=== PATIENT | female | born 1955 | race Caucasian/White ===

== ENCOUNTER 2023-05-05 10:25 | Emergency (ER) | payer MEDICARE, BC ==
[~2023-05-05] VITALS: Ht 165.1 cm; Wt 128.0 kg
[~2023-05-05 10:25] MED LIST: AMLODIPINE BESYL5 MG PO; AMOX TR-K CLV1 EAC1 PO; BACTRIM DS TAB1 EACH PO; BAYER CHEWABLE81 MG PO; BISOPROLOL FUMAR5 MG PO; BLOOD GLUCOSE1 EAC1 MISC; BLOOD GLUCOSE1 EAC8 MISC; CELECOXIB200 MG PO; FUROSEMIDE20 MG PO; GABAPENTIN300 MG PO; HYDROCHLOROTH12.5 MG PO; ICAPS AREDS2 C1 EACH; IRON325 M1 PO; LANCETS1 EACH MISC; LOSARTAN POTASS50 MG PO; METFORMIN HCL500 MG PO; OXYCODONE HCL5 MG PO; POTASSIUM CHLO10 ME1 PO; POTASSIUM CHLO20 ME1 PO; PROBIOTIC1 EAC1 PO; SENNA LAX8.6 MG PO; XARELTO10 MG PO
--- OUTSIDE RECORDS SUMMARY | 2023-05-05 10:28 | XMS ---
PreManage Notification: BHAVANA LUCIO Security Tagman Events No recent Security Events currently on file CRITERIA MET - [facility] CARE PROVIDERS There are no care providers on record at this time. Farhat has no Care Guidelines for this patient. Kalyn VISIT COUNT (12 MO.) 2 ENEIDA Lowery TOTAL 2 NOTE: Visits indicate total known visits. ED/C VISIT TRACKING (12 MO.) 05/05/2023 10:26 ENEIDA Arriola OR TYPE: Emergency COMPLAINT: - ABNORMAL LABS 07/13/2022 21:00 ENEIDA Arriola OR TYPE: Emergency COMPLAINT: - WEAKNESS INPATIENT VISIT TRACKING (12 MO.) 07/13/2022 23:27 ENEIDA Arriola OR TYPE: Medical Surgical COMPLAINT: - SEPSIS, UTI, RIGHT LE CELLULITIS DIAGNOSES: - Cellulitis of right lower limb - Cellulitis of right lower limb - Contact with and (suspected) exposure to COVID-19 - Contact with and (suspected) exposure to COVID-19 - Essential (primary) hypertension - Essential (primary) hypertension - Hypertensive urgency - Hypertensive urgency - Hypomagnesemia - Hypomagnesemia - Other chronic pain - Other chronic pain - Other terminal carman (current) drug therapy - Other fci (current) drug therapy - Pain in right hip - Pain in right hip - Presence of other heart-valve replacement - Presence of other heart-valve replacement - Sepsis due to streptococcus, group A - Sepsis due to streptococcus, group A - Sepsis, unspecified organism - Severe sepsis without septic shock - Severe sepsis without septic shock - Supraventricular tachycardia - Supraventricular tachycardia - Type 2 diabetes mellitus without complications - Type 2 diabetes mellitus without complications - Urinary tract infection, site not specified - Urinary tract infection, site not specified [email or web address]
[2023-05-05 12:35] LABS: BASOPHILS 0.3 % (0-2); EOSINOPHILS 1.3 % (0-6); HEMATOCRIT 27.4 % (35.0-50.0); LYMPHOCYTES 16.2 % (24-44); MCH 31.7 (27-36); MCHC 32.9 g/dl (30-36); MCV 96.3 fl (81-99); MONOCYTES 5.8 % (0-12); NEUTROPHILS 76.4 % (39-80); PLATELET COUNT 218 K/uL (140-440); RBC 2.85 M/ul (4.3-5.7); RDW 14.3 (10.5-15.0)
[2023-05-05 12:50] LABS: ALBUMIN 3.2 g/dL (3.4-5.0); ALBUMIN/GLOBULIN RATIO 1.03 (1.1-2.4); ANION GAP 12.3 (7-21); BILIRUBIN, TOTAL 0.2 ng/dL (0.2-1.0); BUN/CREATININE RATIO 27.98 (6.0-28.6); CALCIUM 8.4 mg/dL (8.5-10.1); CREATININE, SERUM 3.68 mg/dL (0.55-1.02); POTASSIUM 5.3 mmol/L (3.5-5.1); PROTEIN, TOTAL 6.3 g/dL (6.4-8.2)
[2023-05-05 14:01] LABS: BILIRUBIN, URINE NEGATIVE (negative); BLOOD/HGB, URINE NEGATIVE (Negative); KETONE, URINE NEGATIVE (Negative); LEUK ESTERASE, URINE NEGATIVE (negative); NITRITE, URINE NEGATIVE (negative)
[2023-05-05 16:27] VITALS: BP 106/60
== END 2023-05-05 16:29 | disposition home or self-care (01) ==
LOC: ED 10:25
PROVIDERS: Emergency Medicine
DX: N13.9 Obstructive and reflux uropathy, unspecified (principal); I10 Essential (primary) hypertension; Z79.01 Long term (current) use of anticoagulants; Z79.899 Other long term (current) drug therapy; Z96.641 Presence of right artificial hip joint
CPT/HCPCS: 36415; 51702; 74176; 80053; 81003; 83735; 85025; 99284-25

== ENCOUNTER 2025-05-24 13:31 | Inpatient (IN) | payer MEDICARE, BC ==
[~2025-05-24] VITALS: Ht 165.1 cm; Wt 125.5 kg
--- NOTE | ~2025-05-24 | EKG ---
[facility] [address] [place], [place] [address] Draft EK completed, results pending confirmation PATIENT NAME: BHAVANA LUCIO Electrocardiogram DATE OF : 55 PHYSICIAN: PRELIMINARY REPORT #: [id number] REPORT IS CONFIDENTIAL AND NOT TO BE RELEASED WITHOUT AUTHORIZATION
[2025-05-24 14:19] LABS: BASOPHILS 0.5 % (0.1-1.2); EOSINOPHILS 2.4 % (0.7-5.8); LYMPHOCYTES 15.6 % (19.3-51.7); MCH 30.9 PG (25.6-32.2); MCHC 30.8 g/dL (32.2-35.5); MCV 100.2 fL (79.4-94.8); MONOCYTES 5.7 % (4.7-12.5); NEUTROPHILS 75.6 % (34.0-71.1); RBC 4.14 M/uL (3.93-5.22)
[2025-05-24 14:44] LABS: ALT (SGPT) 32.0 U/L (14-59); AST (SGOT) 21.0 U/L (15-37); GLOMERULAR FILTRATION RATE,EST 58.0 mL/min (>60); PROTEIN, TOTAL 7.6 g/dL (6.4-8.2); UREA NITROGEN 36.0 mg/dL (7-18)
[2025-05-24] MEDS ORDERED: FUROSEMIDE 100 MG/10 ML VIAL IV ONE (15:15)
[2025-05-24] MEDS ORDERED: GLUCAGON,HUMAN RECOMBINANT 1 MG/ML VIAL SUB-Q PRN (16:45)
[2025-05-24] MEDS ORDERED: IBLOOD GLUCOSE TEST STRIP 1 EA TEST XX PRN (16:45)
[2025-05-24] MEDS ORDERED: DEXTROSE 50% 50 ML SYR IV PRN ×2 (16:45)
[2025-05-24] MEDS ORDERED: ACETAMINOPHEN 325 MG TAB PO PRN (16:45)
[2025-05-24] MEDS ORDERED: DEXTROSE 5% 1,000 ML IV PRN (16:45)
[2025-05-24] MEDS ORDERED: INSULIN LISPRO 100 UNIT/ML ML SUB-Q SCH (17:00)
[2025-05-24] MEDS ORDERED: IBLOOD GLUCOSE TEST STRIP 1 EA TEST VI SCH (17:00)
[2025-05-24] MEDS ORDERED: ALBUTEROL SULFATE 0.083% 3 ML VIAL INH PRN (17:45)
--- NOTE | 2025-05-24 18:10 | NUR ---
PT DOES NOT TAKE ANY VACCINATIONS
[2025-05-24 18:13] VITALS: BP 134/70
--- NOTE | 2025-05-24 18:28 | NUR ---
ECHOCARDIOGRAM BEING COMPLETED AT BEDSIDE.
--- NOTE | 2025-05-24 19:26 | NUR ---
PT REC'D FROM ED, O2 NC @ 3.5LNC IN USE. PT INDEPENDENT TRANSFER FROM W/C TO BED. ADMISSION HX COMPLETED. IV SL TO R FA. PT A&OX 4, L/S DECREASED TO BASES, HRR, TELE# 6, SR 70'S, ABDOMEN SOFT, BILAT 3+EDEMA TO LE, HOME SUPPORT STOCKINGS IN PLACE. GLUCOSE 125, PT ORIENTED TO ROOM AND CALL CHATMAN, INSTRUCTED TO CALL FOR ASSISTANCE OOB TO BSC. CPOX PLACED AT BEDSIDE. BED IN LOW POSITION AND LOCKED, CALL CHATMAN IN PLACE AND SIDERAILS UP X2. REPORT GIVEN TO ONCOMING SHIFT.
--- NOTE | 2025-05-24 19:32 | NUR ---
REPORT RECIEVED FROM DIYA MCLEAN. PATIENT RESTING IN HER CHAIR WITH HER AT BEDSIDE. PATIENT DENIES ANY NEEDS AT THIS TIME. CALL LIGHT AND PERSONAL BELONGINGS ARE WITHIN REACH.
--- NOTE | 2025-05-24 19:54 | NUR ---
dr rodgers at bedside, per dr rodgers-no need to repeat trops. read back to confirm. primary rn updated and aware.
[2025-05-24] MEDS ORDERED: BUDESONIDE 0.5 MG/2 ML VIAL INH SCH (20:00)
[2025-05-24] MEDS ORDERED: ARFORMOTEROL TARTRATE 15 MCG/2 ML VIAL INH SCH (20:00)
[2025-05-24] MEDS ORDERED: ALBUTEROL/IPRATROPIUM 3 ML NEB INH SCH (20:00)
--- NOTE | 2025-05-24 20:30 | NUR ---
PATIENT MEDICATED PER EMAR. PATIENT ASSESSMENT COMPLETED. PATIENT IS ALERT AND ORIENTED X4. PATIENT IS 93% ON 3L NC. RT AT BEDSIDE PROVIDING BREATHING TREATMENT. PATIENT IS WITHOUT FURTHER NEEDS AT THIS TIME. CALL LIGHT AND PERSONAL BELONGINGS ARE WITHIN REACH.
--- NOTE | 2025-05-24 20:37 | NUR ---
BHAVANA IS CURRENTLY ON A 3L NC. SHE STATED THAT SHE DOES NOT USE HOME O2, NO HOME CPAP/BIPAP, AND NO HOME INHALED RESPIRATORY MEDICATIONS. BHAVANA HAS SMOKED APPROX 1 TO 1 1/2 PACKS OF CIGARETTES A DAY FOR OVER 20 YEARS, QUIT AROUND 40 YEARS AGO. BHAVANA IS ABLE TO USE THE CORNET +5 W/O DIFFICULTY. BHAVANA MAY BENEFIT FROM A HOME REGIMEN OF INHALED RESPIRATORY MEDICATIONS TO INCLUDE: A NEBULIZER, BROVANA BID, PULMICORT BID, AND DUONEB/ATROVENT PRN.
[2025-05-24 20:51] VITALS: BP 119/51
[2025-05-24 21:05] VITALS: BP 119/51
--- NOTE | 2025-05-24 21:06 | NUR ---
RT STATED THAT PT NEEDED TO USE BATHROOM. GLOVE OPERATOR SBA TO BATHROOM. PT ABLE TO USE BATHROOM INDEPENDENTLY. PT ASSISTED BACK TO BED. NO FURTHER NEEDS STATED AT THIS TIME. CALL LIGHT WITHIN REACH.
--- NOTE | 2025-05-24 21:46 | NUR ---
PATIENT PROVIDED MENU. PATIENT ALSO EXPRESSED CONCERN THAT SHE HAS NOT BEEN ABLE TO SLEEP. PATIENT REQUESTED TO NOT HAVE 0200 VITALS TAKEN "IF I'M ASLEEP, CAUSE I'M AFRAID I WON'T BE ABLE TO GO BACK TO SLEEP". PATIENT OFFERED SLEEP AID AND STATES SHE DOES NOT WISH TO TAKE ANY SLEEP MEDICATIONS BUT WILL LET THIS RN KNOW IF SHE CHANGES HER MIND. PATIENT WITHOUT FURTHER NEEDS AT THIS TIME. CALL LIGHT AND PERSONAL BELONGINGS ARE WITHIN REACH.
--- NOTE | 2025-05-24 22:19 | EKG ---
[facility] [address] [facility] [place] [address] Signed Sinus rhythm with 1st degree AV block with premature supraventricular complexes Nonspecific ST abnormality Abnormal ECG When compared with ECG of 13-JUL-2022 21:36, premature supraventricular complexes are now present TN interval has increased Confirmed by Clark Melgoza MD () on 05/24/2025 10:19:23 PM Electronically Signed By: CLARK MELGOZA MD 05/24/25 2219 PATIENT NAME: BHAVANA LUCIO Electrocardiogram DATE OF : 55 PHYSICIAN: CLARK MELGOZA MD REPORT #: [id number] REPORT IS CONFIDENTIAL AND NOT TO BE RELEASED WITHOUT AUTHORIZATION
--- NOTE | 2025-05-24 22:24 | NUR ---
PATIENT SITTING UP IN BED WATCHING TV. PATIENT IS 92% ON 3L NC. PATIENT IS WITHOUT ANY NEEDS AT THIS TIME. CALL LIGHT AND PERSONAL BELONGINGS ARE WITHIN REACH.
--- NOTE | 2025-05-24 23:19 | NUR ---
CALL LIGHT ANSWERED. PT NEEDED TO USE BATHROOM. TALENT SOURCER SBA PT TO [facility]. PT VOIDED AND ASSISTED BACK TO BED. PT STATES NO FURTHER NEEDS AT THIS TIME. CALL LIGHT WITHIN REACH.
[2025-05-25] VITALS (11 sets, daily range): BP systolic 107–139; BP diastolic 44–67
--- NOTE | 2025-05-25 00:26 | NUR ---
PATIENT SITTING UP IN BED. EXTRA PILLOW PROVIDED. PATIENT DENIES ANY NEEDS AT THIS TIME. CALL LIGHT AND PERSONAL BELONGINGS ARE WITHIN REACH.
--- NOTE | 2025-05-25 02:29 | NUR ---
PATIENT RESTING IN BED WITH HER EYES CLOSED. EVEN AND UNLABORED RESPIRATIONS NOTED. PATIENT IS 93% ON 3L NC, CPOX AT BEDSIDE. CALL LIGHT AND PERSONAL BELONGINGS ARE WITHIN REACH. PATIENT NOT WOKEN AT THIS TIME FOR VITAL SIGNS PER PATIENT REQUEST. DR MELGOZA AWARE AND OKAY WITH PATIENT NOT HAVING 0200 VITAL SIGNS DUE TO PATIENT NEEDING REST.
--- NOTE | 2025-05-25 04:00 | NUR ---
PATIENT RESTING IN BED WITH HOB ELEVATED. PATIENT EYES ARE CLOSED. EVEN AND UNLABORED RESPIRATIONS NOTED. CALL LIGHT AND PERSONAL BELONGINGS ARE WITHIN REACH.
--- NOTE | 2025-05-25 05:02 | NUR ---
CALL LIGHT ANSWERED. PT WANTED TO SIT IN CHAIR. WIND OPERATIONS SUPERVISOR SBA PT FROM BED TO CHAIR. VITALS AND I&O OBTAINED. PT WATER REFILLED. NO FURTHER NEEDS STATED AT THIS TIME. CALL LIGHT WITHIN REACH.
[2025-05-25 05:29] LABS: BASOPHILS 0.5 % (0.1-1.2); EOSINOPHILS 1.4 % (0.7-5.8); LYMPHOCYTES 14.7 % (19.3-51.7); MCH 31.6 PG (25.6-32.2); MCHC 31.1 g/dL (32.2-35.5); MCV 101.4 fL (79.4-94.8); MONOCYTES 5.6 % (4.7-12.5); NEUTROPHILS 77.6 % (34.0-71.1); RBC 3.61 M/uL (3.93-5.22)
[2025-05-25 05:48] LABS: ALT (SGPT) 28.0 U/L (14-59); AST (SGOT) 7.0 U/L (15-37); GLOMERULAR FILTRATION RATE,EST 55.0 mL/min (>60); PHOSPHORUS, INORGANIC 5.4 mg/dL (2.5-4.9); PROTEIN, TOTAL 6.6 g/dL (6.4-8.2); UREA NITROGEN 35.0 mg/dL (7-18)
--- NOTE | 2025-05-25 07:40 | NUR ---
REPORT REC'D FROM ABEL KEANE. PT SITTING UP IN CHAIR WITHOUT C/O. CALL CHATMAN IN REACH, CHAIR LOCKED.
[2025-05-25] MEDS ORDERED: FUROSEMIDE20 MG PO (07:59)
[2025-05-25] MEDS ORDERED: BUDESONIDE-FO10.2 G1 INH (08:01)
[2025-05-25] MEDS ORDERED: HYDROCHLOROTHIA25 MG PO (08:02)
[2025-05-25] MEDS ORDERED: ATORVASTATIN CA10 MG PO (08:04)
[2025-05-25] MEDS ORDERED: METFORMIN HCL500 M1 PO (08:05)
[2025-05-25] MEDS ORDERED: ENOXAPARIN SODIUM 40 MG/0.4 ML SYR SUB-Q SCH (09:00)
[2025-05-25] MEDS ORDERED: POTASSIUM CHLO10 ME1 PO (10:06)
[2025-05-25] MEDS ORDERED: LO-DOSE ASPIRIN81 MG PO (10:07)
--- NOTE | 2025-05-25 10:07 | NUR ---
MED REC COMPLETE
--- NOTE | 2025-05-25 10:28 | NUR ---
STEVEN WAS IN HER CHAIR AT THIS TIME, WE DID AM CARE, SHE USED THE RESTROOM, SENIOR COMPLIANCE ANALYST CHANGED HER LINENS, AND CHARTED HER VITALS AND I&O'S, CALL LIGHT WITH IN REACH AND NOTHING ELSE NEEDED AT THIS TIME.
--- NOTE | 2025-05-25 10:36 | NUR ---
PT TAKEN TO [facility]
--- NOTE | 2025-05-25 11:19 | NUR ---
PT SITTING UP IN CHAIR, O2 DECREASED TO 1LNC, DESATURATIONS NOTED TO 84-87% WHILE CONVERSING. PT WITHOUT C/O. CALL CHATMAN IN REACH, WHEELS LOCKED.
[2025-05-25] MEDS ORDERED: PHARMACY RENAL DOSE ADJUSTMENT 1 DOSE MISC PO SCH (12:00)
[2025-05-25] MEDS ORDERED: FUROSEMIDE 40 MG TAB PO SCH (12:15)
--- NOTE | 2025-05-25 13:36 | NUR ---
PATIENT IS IN HER CHAIR AT THIS TIME, UNDERGROUND DISTRIBUTION ENGINEER CHARTED VITALS AND I&O'S, CALL LIGHT WITH IN REACH AND NOTHING ELSE NEEDED AT THIS TIME.
--- NOTE | 2025-05-25 13:42 | NUR ---
PT UP TO BRP, NOTED TO HAVE HR 160'S. STAFF TO ROOM, PT AMBULATING, SPO2 74% ON 1LNC, O2 INCREASED TO 6LNC, SATS INCREASED TO 88-91%, DECREASED TO 2L MAINTAINING SATS 89%, HR 95. PT STATS WAS HAVING AN EMOTIONAL CONVERSATION WITH HER DAUGHTER AT THE TIME. PT REASSURED, SITTING IN RECLINER WITH LEGS ELEVATED ON SOFA. CALL CHATMAN IN REACH, INSTRUCTED TO CALL FOR BRP OR ADDITIONAL NEEDS.
--- NOTE | 2025-05-25 18:19 | NUR ---
PT CARED FOR T/O SHIFT, WITH NO FURTHER EPISODES OF TACHYCARDIA AND MARKED O2 DESATURATION. PT SITTING UP IN RECLINER T/O SHIFT, O2 IN PLACE AT 2LNC, SPO2 88% AT THIS TIME. PT WITHOUT C/O. PT INSTRUCTED TO CALL FOR ASSISTANCE OUT OF CHAIR, CALL CHATMAN IN REACH, CHAIR RECLINED AND LOCKED.
--- NOTE | 2025-05-25 18:29 | NUR ---
PATIENT IS IN HER CHAIR AT THIS TIME, TURN OUT CHARTED VITALS AND I&O'S, CALL LIGHT WITH IN REACH, IN ROOM, NOTHING ELSE NEEDED AT THIS TIME.
--- NOTE | 2025-05-25 19:20 | NUR ---
REPORT RECIEVED FROM DIYA MCLEAN. PATIENT RESTING IN HER CHAIR TALKING ON THE PHONE WITH HER DAUGHTER. PATIENT IS WITHOUT ANY NEEDS AT THIS TIME. CALL LIGHT AND PERSONAL BELONGINGS ARE WITHIN REACH. WHITE BOARD UPDATED.
--- NOTE | 2025-05-25 20:07 | NUR ---
IN ROOM WITH FRINGE WEAVER TO COLLECT HS VITAL SIGNS. WHILE SWITCHING TELE BATTERY, HR NOTED TO BE IN 140'S THEN RETURNED TO BASELINE. pt RESTING QUIETLY IN CHAIR, REPORTS SHE SEES TRUST AND ESTATES ATTORNEY AND SPORADICALLY HAS A FASTER HEART RATE AT HOME, STATING, "I NOTICE MY HEART RATE GETS FASTER BUT THEN BY THE TIME I CHECK IT IT'S NORMAL AGAIN". pt CALM, INTERACTIVE WITH STAFF. PRIMARY RN MADE AWARE. VITAL SIGNS WNL. pt RESTING IN CHAIR, CALL LIGHT IN REACH. TELE REMAINS IN PLACE.
--- NOTE | 2025-05-25 20:30 | NUR ---
PATIENT MEDICATED PER EMAR. PATIENT SITTING UP IN HER CHAIR RECIEVING BREATHIN TREATMENT WITH RT AT BEDSIDE. PATIENT ASSESSMENT COMPLETED. PATIENT IS WITHOUT ANY NEEDS AT THIS TIME. CPOX AT BEDSIDE. CALL LIGHT AND PERSONAL BELONGINGS ARE WITHIN REACH.
[2025-05-25] MEDS ORDERED: ASPIRIN 81 MG TABEC PO SCH (21:00)
[2025-05-25] MEDS ORDERED: ATORVASTATIN 10 MG TAB PO SCH (21:00)
--- NOTE | 2025-05-25 21:15 | NUR ---
PER RT CARMELA, pt WISHES TO WALK IN THE HALLWAY-RESTLESS. DISCUSSED PREVIOUS TACHYCARDIC EPISODE WITH RT. RT PLANS TO MONTIOR W/ AMBULATION. pt HR UP TO 124-125 A COUPLE TIMES, BUT OVERALL RANGED BETWEEN LOW 100'S TO ONE TEENS WHILE AMBULATING IN ROOM, pt WOULD MONITOR HR AND PAUSE WHEN HR CLIMBED. pt TOLERATED AMBULATING WELL AND CONVERSED WITH STAFF. pt THEN UP FROM 2LNC TO 6L WHILE AMBULATING. pt THEN USED BATHROOM AND WENT TO BED. PRIMARY RN UPDATED.
--- NOTE | 2025-05-25 21:47 | NUR ---
Ana Paula stated that she felt like she was getting stiff and wanted to stand and walk around. She was questioning when PT would come work with her. So, after speaking with the assigned RN and the Charge Nurse, RT walked patient Song around her room. At this point, unofficially, Ana Paula required 6L's of oxygen when ambulating, but titrated back to 2L of oxygen on a nasal cannula once in bed and relaxed. RT has explained to Ana Paula that she may go home with oxygen.
[2025-05-26] VITALS (10 sets, daily range): BP systolic 122–140; BP diastolic 49–60
--- NOTE | 2025-05-26 00:22 | NUR ---
PATIENT SITTING UP IN BED WITH HER EYES CLOSED. EVEN AND UNLABORED RESPIRATIONS NOTED. CALL LIGHT AND PERSONAL BELONGINGS ARE WITHIN REACH. PATIENT IS 93%, CPOX AT BEDSIDE.
--- NOTE | 2025-05-26 01:00 | NUR ---
Assisted Pt from bed to bathroom and back via SBA. No other needs expressed by Pt. Call light left in reach.
--- NOTE | 2025-05-26 02:24 | NUR ---
PATIENT RESTING IN BED WITH HER EYES CLOSED EVEN AND UNLABORED RESPIRATIONS NOTED. CALL LIGHT AND PERSONAL BELONGINGS ARE WITHIN REACH.
--- NOTE | 2025-05-26 03:21 | NUR ---
PATIENT WAS ASSISTED SBA TO THE BATHROOM. PATIENT IS LAYING IN RECLINER. CALL LIGHT IS WITHIN REACH AND NO FURTHER NEEDS AT THIS TIME.
[2025-05-26 05:22] LABS: BASOPHILS 0.6 % (0.1-1.2); EOSINOPHILS 3.6 % (0.7-5.8); LYMPHOCYTES 16.5 % (19.3-51.7); MCH 32.0 PG (25.6-32.2); MCHC 31.6 g/dL (32.2-35.5); MCV 101.4 fL (79.4-94.8); MONOCYTES 6.8 % (4.7-12.5); NEUTROPHILS 72.2 % (34.0-71.1); RBC 3.56 M/uL (3.93-5.22)
[2025-05-26 05:37] LABS: ALT (SGPT) 25.0 U/L (14-59); AST (SGOT) 14.0 U/L (15-37); GLOMERULAR FILTRATION RATE,EST 67.0 mL/min (>60); PROTEIN, TOTAL 6.7 g/dL (6.4-8.2); UREA NITROGEN 28.0 mg/dL (7-18)
--- NOTE | 2025-05-26 07:31 | NUR ---
PT SITTING UP IN RECLINER AT TIME OF SHIFT REPORT. CALL LIGHT AND NEEDED ITEMS IN REACH.
--- NOTE | 2025-05-26 07:40 | NUR ---
IN TO DO MORNING ROUNDS AND BLOOD SUGAR. PATIENT UP IN CHAIR AT THIS TIME. WHITE BOARD UPDATED. LINENS CHANGED. CALL LIGHT IN REACH. NO FURTHER NEEDS AT THIS TIME.
--- NOTE | 2025-05-26 08:45 | NUR ---
MORNING MEAL WELL TOLERATED. PT CONTINUES UP IN CHAIR. SATS 91% ON 1 L 02. PT DENIES SOB OR OTHER DISCOMFORTS. NEEDED ITEMS AT CHAIRSIDE
--- NOTE | 2025-05-26 09:35 | NUR ---
PT CONTINUES UP IN THE CHAIR DECLINES TO ELEVATE LE DESPITE EDUCATION PROVIDED. AGREES TO SCD'S ORDERED BY DR THOMPSON EQUIPMENT PREPARED FOR WHEN PT RETURNS TO BED. PT USING ELECTRONICS DENIES ANY NEEDS AT THIS TIME
--- NOTE | 2025-05-26 09:52 | NUR ---
PATIENT SITTING UP IN CHAIR AT THIS TIME. VITALS AND I&O'S DONE AND CHARTED. PATIENT WOULD LIKE A SHOWER, THIS GAS REGULATOR REPAIRER HELPER WILL MAKE A PLAN WITH RN FOR A SHOWER. CALL LIGHT IN REACH. NO FURTHER NEEDS AT THIS TIME.
--- NOTE | 2025-05-26 10:41 | NUR ---
DID NOT NOTIFY MD OF ELEVATED MEWS SCORE 101 HR NOT MAINTAINED HAS RETURNED TO 90. HR HAS SPIKED PREVIOUSLY THIS HOSPITAL STAY WITH ACTIVITY
--- NOTE | 2025-05-26 12:01 | NUR ---
PT USES CALL LIGHT APPROPRIATELY TO TOILET. SATS DIP AND HR GOES UP PT RECOVERS QUICKLY AFTER SITTING. 02 REMAINS ON AT 1LPM. NOON MEAL SERVED PT DENIES OTHER NEEDS OF
--- NOTE | 2025-05-26 13:16 | NUR ---
PATIENT UP TO SHOWER CHAIR, SBA. PATIENT ASSISTED IN SHOWERING AND DID ORAL CARE STANDING AT SINK AND TOLERATED ACTIVITY WELL. AM CARE, ORAL CARE, VELVET CARE, SKIN CARE, SHAMPOO DONE. NEW GOWN ON. PATIENT NOW BACK TO CHAIR, SBA. VITALS AND I&O'S DONE AND CHARTED. CALL LIGHT IN REACH. NO FURTHER NEEDS AT THIS TIME.
--- NOTE | 2025-05-26 14:53 | NUR ---
PT CONTINUES UP IN THE CHAIR THIS SHIFT VISITING WITH A GUEST, DENIES NEEDS. SHOWER WELL TOLERATED. SATS DIPPED A LITTLE BUT RECOVERED QUICKLY
[2025-05-26] MEDS ORDERED: FUROSEMIDE 40 MG TAB PO ONE (15:00)
--- NOTE | 2025-05-26 15:48 | NUR ---
PT OUT OF CHAIR TO BRP. PT NOTED TO DESATURATE TO 76% ON 1LNC WITH ACTIVITY. RETURNED TO CHAIR, HR 100'S, DYSPNIC RR 26, HR 100'S, O2 INCREASE TO 2LNC, SPO2 TO 89%, O2 DECREASED TO 1LNC PREVIOUSLY SET, SPO2 88%, PULSE OX PROBE CHANGED TO LEFT HAND PER PATIENT REQUEST. VOID 600ML CLEAR YELLOW URINE. PT RETURNED TO CHAIR, LEGS ELEVATED ON SOFA, CALL CHATMAN IN REACH, CHAIR LOCKED. PT INSTRUCTED TO CALL FOR ASSISTANCE, VERBALIZED UNDERSTANDING.
--- NOTE | 2025-05-26 17:09 | NUR ---
PT CONTINUES UP IN THE CHAIR. SHE HAS BEEN ELEVATEING HER LE ON THE COUCH. EATING EVENING MEAL NOW, DENIES NEED OF ANYTHING
--- NOTE | 2025-05-26 18:36 | NUR ---
PATIENT SITTING UP IN CHAIR TALKING WITH VISITOR IN ROOM. VITALS AND I&O'S DONE AND CHARTED. CALL LIGHT IN REACH. NO FURTHER NEEDS AT THIS TIME.
--- NOTE | 2025-05-26 19:17 | NUR ---
REPORT RECEIVED FROM DAY SHIFT RN. PT SITTING IN RECLINER ALERT AND ORIENTED. DENIES NEEDS. WHITE BOARD UPDATED. CALL LIGHT IN REACH.
--- NOTE | 2025-05-26 20:46 | NUR ---
EVENING ASSESSMENT COMPLETE. SCHEDULED MEDS ADMIN PER EMAR. PT DENIES PAIN OR NAUSEA. DENIES SOB. 1L/NC IN PLACE. SpO2 LOW 90'S. FINE CRACKLES AUSCULTATED IN BILAT LOWER LUNGS. TELE #[address] SR. HR 90'S. BLE EDEMA NOTED. PT WITH FEET ELEVATED IN RECLINER. PT DENIES QUESTIONS OR CONCERNS. CALL LIGHT IN REACH.
[2025-05-26] MEDS ORDERED: FUROSEMIDE 40 MG TAB PO SCH (21:00)
--- NOTE | 2025-05-26 22:34 | NUR ---
PATIENT CALLED TO USE THE BATHROOM. SBA TO VOID UNMEASURED. MISSED THE HAT. PATIENT IS BACK IN BED. NO OTHER NEEDS AT THIS TIME.
--- NOTE | 2025-05-26 23:03 | NUR ---
PT RESTING IN BED WITH EYES CLOSED. RESPIRATIONS EVEN. CALL LIGHT IN REACH.
[2025-05-27] VITALS (10 sets, daily range): BP systolic 119–145; BP diastolic 46–74
--- NOTE | 2025-05-27 00:40 | NUR ---
CALL LIGHT ANSWERED. PATIENT STATING I JUST WANT TO GET UP. PATIENT SITTING AT THE EDGE OF THE BED. CALL LIGHT WITHIN REACH.
--- NOTE | 2025-05-27 01:38 | NUR ---
PT UP TO BR TO VOID. GAIT STEADY. BACK TO RECLINER. PT DENIES SOB WITH ACTIVITY. SpO2 UPON RETURN 81%. OXYGEN TITRATED FOR SATS >90% AND BACK TO 1L/NC FOR SpO2 91%. PT REQUESTING TO REST IN RECLINER. BLE ELEVATED. SCD'S IN PLACE. ASSESSMENT UNCHANGED. PT DENIES FURTHER NEEDS. CALL LIGHT IN REACH.
--- NOTE | 2025-05-27 03:16 | NUR ---
PT RESTING IN RECLINER WITH EYES CLOSED. RESPIRATIONS EVEN. CALL LIGHT IN REACH.
--- NOTE | 2025-05-27 04:18 | NUR ---
PATIENT CALLED TO USE THE RESTROOM TO VOID 100ML DARK URINE SBA. PATIENT IS NOW BACK IN BED. SIDE TABLE AND CALL LIGHT WITHIN REACH. STANDING SCALE WEIGHT OBTAINED. NO FURTHER NEEDS AT THIS TIME.
--- NOTE | 2025-05-27 05:09 | NUR ---
LAB IN FOR MORNIING DRAW. VS AND I&O OBTAINED. PT DENIES NEEDS AT THIS TIME. CALL LIGHT IN REACH.
[2025-05-27 05:16] LABS: BASOPHILS 0.7 % (0.1-1.2); EOSINOPHILS 4.4 % (0.7-5.8); LYMPHOCYTES 19.2 % (19.3-51.7); MCH 31.4 PG (25.6-32.2); MCHC 31.4 g/dL (32.2-35.5); MCV 100.0 fL (79.4-94.8); MONOCYTES 7.5 % (4.7-12.5); NEUTROPHILS 67.9 % (34.0-71.1); RBC 3.38 M/uL (3.93-5.22)
[2025-05-27 05:31] LABS: ALT (SGPT) 20.0 U/L (14-59); AST (SGOT) 15.0 U/L (15-37); GLOMERULAR FILTRATION RATE,EST 82.0 mL/min (>60); PROTEIN, TOTAL 6.4 g/dL (6.4-8.2); UREA NITROGEN 26.0 mg/dL (7-18)
--- NOTE | 2025-05-27 07:28 | NUR ---
PT SITTING UP IN RECLINER DOZING AT TIME OF SHIFT REPORT. FRESH H20 AND NEEDED ITEMS IN REACH.
--- NOTE | 2025-05-27 07:45 | NUR ---
IN TO DO MORNING ROUNDS AND BLOOD SUGAR. PATIENT IN CHAIR AT THIS TIME, RT IN ROOM. WHITE BOARD UPDATE. LINENS CHANGED. CALL LIGHT IN REACH. NO FURTHER NEEDS AT THIS TIME.
--- NOTE | 2025-05-27 08:27 | NUR ---
PT CONTINUES UP IN THE CHAIR EATING MORNING MEAL DENIES NEEDS
[2025-05-27] MEDS ORDERED: FUROSEMIDE 40 MG TAB PO SCH (09:00)
--- NOTE | 2025-05-27 09:12 | NUR ---
DR THOMPSON IN TO SEE PT. ALL QUESTIONS ANSWERED
--- NOTE | 2025-05-27 09:54 | NUR ---
PATIENT SITTING UP IN CHAIR AT THIS TIME. VITALS AND I&O'S DONE AND CHARTED. CALL LIGHT IN REACH. NO FURTHER NEEDS AT THIS TIME.
--- NOTE | 2025-05-27 10:11 | NUR ---
UR CLINICAL REVIEW: 2 MN FOR [facility]ERS[facility]-PER SPEECH AND LANGUAGE CLINICIAN MEETS INPT FOR CHF WITH NEED FOR DAILY WEIGHT, IV DIURESIS AND SERIAL LABS MEDICARE INPT 05/24/25 @ 8485 ORDER MATCHES REG NO AUTH REQUIRED PER MEDICARE GUIDELINES DISCHARGE TO HOME WHEN STABLE
--- NOTE | 2025-05-27 10:17 | NUR ---
INTO SEE PATIENT. PERSONAL HEALTH INFORMATION REVIEWED. PATIENT LIVES IN A HOUSE WITH . 5-6 STEPS INTO THE HOME. DENIES DIFFCULTY DOING THIME. SHE HAS A WALKER AND CANE FROM PERVIOUS SURGERIES BUT DOES NOT USE THEM AT BASELINE. PATIENT DOES NOT USE OXYGEN OR CPAP. PATIENT DOES HAVE A SON AND DAUGHTER IN [place] THAT LIVE WITH HER AND HER THAT CAN HELP THEM. SHE SEES DR[facility] LEYVA IN [facility]. DENIES ANY DIFFCULTY PAYING UTLITIES OR OBTAINING FOOD. WILL BE HERE TO PICK HER UP AT TIME OF D/C. IMM LETTER COMPLETED. NO FUTHER CM NEEDS.
--- NOTE | 2025-05-27 10:34 | NUR ---
CHF EDUCATION REVIEWED, PT HAS WRITTEN INFO SHE HAS BEEN READING. Q&A WENT WELL. PT UP IN THE CHAIR AT THIS TIME VISITING WITH A GUEST.
--- NOTE | 2025-05-27 10:48 | NUR ---
PT UP WALKING THE CONNELL WITH P/T 02 AT 2LPM HR ELEVATES TO 120'S 02 FLUCTUATES TO 80-90s
--- NOTE | 2025-05-27 12:40 | NUR ---
PT EATS 100% OF NOON MEAL CONTINUE UP IN THE RECLINER WITHOUT NEED OR REQUEST
--- NOTE | 2025-05-27 13:42 | NUR ---
PT SITTING UP IN RECLINER LE ELEVATED SHE IS READING AND DENIES NEED OF ANYTHING
--- NOTE | 2025-05-27 14:50 | NUR ---
PATIENT AMBULATED IN HALLWAY, SBA. PATIENT WALKED TO END OF HALLWAY AND BACK TO ROOM TAKING 2 BREAKS. PATIENT TOLERATED IT WELL AND VERY AWARE OF HEART RATE. PATIENT NOW BACK TO CHAIR. CARDIAC NURSE TO ROOM TO START SOME EDUCATION. CALL LIGHT IN REACH. NO FURTHER NEEDS AT THIS TIME.
--- NOTE | 2025-05-27 15:16 | NUR ---
PT SITTING UP IN THE CHAIR TALKING WITH A VISITOR DENIES NEEDS AT THIS TIME
--- NOTE | 2025-05-27 15:24 | NUR ---
PT NOTED TO HAVE HR 160'S - 170'S. RN ENTERED ROOM, FOUND CARDIAC EDUCATOR AT BEDSIDE. PT STATED SHE DOES FEEL WHEN HER HEART RATE INCREASES AND WHEN IT LOWERS. PT SPO2 95%, 1LNC. PT DENIES SHORTNESS OF BREATH OR CHEST PAIN. BP 129/53 (72), PT O2 INCREASED TO 2LNC, DR. THOMPSON AWARE, EKG ORDERED. CALL CHATMAN IN REACH, CHAIR LOCKED.
--- NOTE | 2025-05-27 15:37 | NUR ---
In Pts room to complete CHF education. Pt reseptive of educaition and asked questions. Pt verbalized understanding of education and is aware if she has any other questions, I would return to the room to answer them. Pt was given Get with the Guidelines, Heart Falure discharge packet.
--- NOTE | 2025-05-27 15:45 | NUR ---
CALL PLACE TO DR. LEYVA OFFICE, , IN [place], [place] REQUESTING CARDIOLOGY NOTES AND HOLTER MONITOR RESULTS. VM LEFT WITH RETURN NUMBER AND FAX NUMBER.
--- NOTE | 2025-05-27 16:01 | NUR ---
PATIENT IN CHAIR AT THIS TIME. ADMISSIONS GATE ATTENDANT CHARTED HOURLY ROUNDS. CALL LIGHT WITHIN REACH, NO FURTHER NEEDS.
[2025-05-27] MEDS ORDERED: FUROSEMIDE 20 MG TAB PO SCH (16:45)
--- NOTE | 2025-05-27 17:39 | NUR ---
PT CONTINUES UP IN THE CHAIR EATING EVENING MEAL.
--- NOTE | 2025-05-27 18:02 | NUR ---
PATIENT IN CHAIR AT THIS TIME. GANG BORE OPERATOR CHARTED VITALS AND I&O'S. CALL LIGHT WITHIN REACH, NO FURTHER NEEDS.
--- NOTE | 2025-05-27 18:22 | NUR ---
PATIENT AMBULATED IN HALLWAY 1 FULL LAP AROUND WITH 3 BREAKS, SBA. PATIENT NOW BACK TO CHAIR. CALL LIGHT IN REACH. NO FURTHER NEEDS AT THIS TIME.
--- NOTE | 2025-05-27 19:30 | NUR ---
REPORT RECEIVED FROM DAY SHIFT RN. PT SITTING IN RECLINER ALERT AND ORIENTED. DENIES NEEDS. WHITE BOARD UPDATED. CALL LIGHT IN REACH.
--- NOTE | 2025-05-27 20:42 | NUR ---
EVENING ASSESSMENT COMPLETE. SCHEDULED MEDS ADMIN PER EMAR. PT DENIES PAIN OR NAUSEA. DENIES SOB. 1L/NC IN PLACE. SpO2 91%. SCATTERED WHEEZE AUSCULTATED THROUGHOUT. BLE EDEMA NOTED. TELE #[address] SR. HR 80'S. PT DENIES QUESTIONS OR CONCERNS. CALL LIGHT IN REACH.
--- NOTE | 2025-05-27 22:40 | NUR ---
CALL LIGHT ANSWERED. PT UP TO BR WITH MINIMAL SBA TO VOID. GAIT STEADY. BACK TO RECLINER WITH LEGS ELEVATED. NO FURTHER NEEDS. CALL LIGHT IN REACH.
[2025-05-28] VITALS (13 sets, daily range): BP systolic 100–146; BP diastolic 38–81
--- NOTE | 2025-05-28 00:40 | NUR ---
PT RESTING IN RECLINER WITH EYES CLOSED. SpO2 91% ON 1L/NC. HR 80'S. CALL LIGHT IN REACH.
--- NOTE | 2025-05-28 01:36 | NUR ---
CALL LIGHT ANSWERED. PT UP TO BR TO VOID. GAIT STEADY. BACK TO BED. SCD'S IN PLACE. VS OBTAINED. PT DENIES FURTHER NEEDS. CALL LIGHT IN REACH.
--- NOTE | 2025-05-28 04:05 | NUR ---
PT IN RECLINER RESTING WITH EYES CLOSED. RESPIRATIONS EVEN. SpO2 91% WITH 1L/NC. HR 70'S.
--- NOTE | 2025-05-28 04:27 | NUR ---
PHONE CALL FROM CCU RN, NOTIFIED pt'S HR 160. IN ROOM TO ASSESS pt. RESTING IN BED ASLEEP, AWAKENS TO VOICE. pt STATES SHE CAN FEEL THAT HER HEART IS RACING. VS COMPLETE. PHONE CALL TO , NOTIFIED HR NOW 170S FOR >6 MINUTES. NO NEW ORDERS RECEIVED. ORDER TO DC TELEMETRY. PHONE CALL TO NURSING SPOT WELDER, CCU RN. NURSING SPOT WELDER TO FLOOR. CONSIDER RAPID RESPONSE.
[2025-05-28] MEDS ORDERED: METOPROLOL TARTRATE 25 MG TAB ONE (04:41)
[2025-05-28] MEDS ORDERED: METOPROLOL TARTRATE 5 MG/5 ML VIAL ONE (04:41)
[2025-05-28] MEDS ORDERED: METOPROLOL TARTRATE 5 MG/5 ML VIAL IV STA (04:42)
[2025-05-28] MEDS ORDERED: METOPROLOL TARTRATE 25 MG TAB PO STA (04:43)
--- NOTE | 2025-05-28 04:45 | NUR ---
CALLED FOR SUSTAINED HEART RATE OF [phone] SINCE 419. DISCUSSED PATIENTS HOME CARDIAC MEDS THAT HAVE NOT BEEN STARTED INPATIENT. NEW ORDERS FOR LOPRESSOR IV 5MG NOW AND 25MG PO NOW, AND OK TO CONTINUE TELEMETRY.
--- NOTE | 2025-05-28 05:13 | NUR ---
UPDATED REGARDING NO AM LABS. NEW TELEPHONE ORDERS RECEIVED VERIFIED WITH READBACK METHOD.
--- NOTE | 2025-05-28 05:16 | NUR ---
PT SITTING UP IN CHAIR. PT HAS NO NEEDS AT THIS TIME. CALL LIGHT WITHIN REACH.
[2025-05-28 05:48] LABS: ALT (SGPT) 29.0 U/L (14-59); AST (SGOT) 14.0 U/L (15-37); GLOMERULAR FILTRATION RATE,EST 87.0 mL/min (>60); PROTEIN, TOTAL 7.2 g/dL (6.4-8.2); UREA NITROGEN 20.0 mg/dL (7-18)
--- NOTE | 2025-05-28 06:25 | NUR ---
PT RESTING IN RECLINER WITH EYES CLOSED. RESPIRATIONS EVEN. HR 60'S AT THIS TIME. CALL LIGHT IN REACH.
--- NOTE | 2025-05-28 07:30 | NUR ---
GOT REPORT FROM NURSING COORDINATOR NURSE.
--- NOTE | 2025-05-28 07:42 | NUR ---
PATIENT ALSO HAS A IV ON THE RIGHT SIDE OF HER CHEST. FLUSHED, C/D/I.
--- NOTE | 2025-05-28 07:53 | NUR ---
PATIENT UP TO THE CHAIR FOR BREAKFAST BY GENERAL ACCOUNTING CLERK. PATIENT HAS BEEN DOING HER IS AND DID IT WHILE THIS NURSE WAS IN THERE. PATIENT STATES SHE IS BETTER TODAY BUT FEELS LIKE SHE HAS TO KEEP CLEARING HER THROAT WHICH HAS BEEN OFF AND ON SINCE BEING HERE. PATIENT HAS WATER AT BEDSIDE AND WAS GIVEN BLACK COFFEE. PATIENT IS ON 1L NC THAT IS NOT CHRONIC FOR HER. PATIENT WOULD LIKE A SHOWER TODAY AND GENERAL ACCOUNTING CLERK HAS BEEN ADVISED. PATIENT HAS A RIGHT CHEST IV THAT WAS DISCUSSED WITH CHARGE AND WILL BE REMOVED. PT HAS ANOTHER IV IN RIGHT ARM WORKING AND FLUSHED WELL. BM THIS MORNING. PATIENT HAS FOLLOW UP WITH CARDIO SCHEDULED . SHE TRIED TO CALL THEM YESTERDAY TO ADVISE HIM OF WHAT WAS GOING ON. PATIENT WILL NEED ONE UNIT OF INSULIN THIS MORNING WHEN BREAKFAST COMES. PATIENT DENIES ANY OTHER NEEDS AT THIS TIME. CALL LIGHT WITHIN REACH.
--- NOTE | 2025-05-28 08:20 | NUR ---
PATIENT GIVEN MORNING MEDICATIONS WITH 1 UNITS OF INSULIN. PATIENT IS EATING BREAKFAST RIGHT NOW. RIGHT CHEST IV REMOVED, NO COMPLICATIONS, CATH INTACT. PATIENT HAS EVERYTHING READY FOR A SHOWER WHEN SHE IS DONE.
--- NOTE | 2025-05-28 08:49 | NUR ---
HOURLY ROUNDING PATIENT IS TAKING A SHOWER, PATIENT ONE PERSON ASSIST TO THE BATHROOM. PATIENT DOING WELL SHOWERING ON HER OWN. PATIENT HAS BEEN NOTIFIED TO PULL CALL LIGHT WHEN DONE
[2025-05-28] MEDS ORDERED: FUROSEMIDE 20 MG TAB PO SCH (09:00)
--- NOTE | 2025-05-28 09:00 | NUR ---
RT CALLED PATIENT HAS NOT HAD HER BREATHING TREATMENTS THIS MORNING YET. THEY WILL BE OVER.
--- NOTE | 2025-05-28 09:00 | NUR ---
Spoke with pt. She denies needs.
[2025-05-28] MEDS ORDERED: METOPROLOL TARTRATE 25 MG TAB PO SCH (09:45)
--- NOTE | 2025-05-28 12:24 | NUR ---
PATIENT UP IN CHAIR FOR LUNCH. PATIENT GIVEN LASIX. PATIENT HAS 1L NC ON WITH A 94% STAT. DENIES SOB. STATES SHE HAS NOT TODAY. FAMILY JUST LEFT FROM VISITING PATIENT. CALL LIGHT WITHIN REACH. DENIES ANY OTHER NEEDS
--- NOTE | 2025-05-28 13:07 | NUR ---
HOURLY ROUNDING PATIENT ATE LUNCH IN HER RECLINER. NO REQUEST PATIENT VISITING WITH HER CALL LIGHT HAS BEEN PLACED WITHIN REACH
--- NOTE | 2025-05-28 13:10 | NUR ---
PATIENT VISITING WITH FAMILY IN CHAIR.
--- NOTE | 2025-05-28 13:32 | NUR ---
PATIENT UP AND WALKED A LAP ON MED SURG. HEART RATE WAS 80-110S AND OXYGEN STAT WAS FROM 88-92 ON 2L. PT BACK IN CHAIR AND BACK ON 1L. PATIENT HAS AT BEDSIDE. WATER NEXT TO HER.
--- NOTE | 2025-05-28 15:53 | NUR ---
HOURLY ROUNDING WALKED A LAP AROUND THE NURSE STATION WITH PATIENT WHILE CHECKING HER HEART RATE WITH THE TELE. PATIENT TOOK BREAKS IN BETWEEN THE WALK. PATIENT IS NOW SITTING IN RECLINER CHAIR HEART RATE AT 71. CALL LIGHT HAS BEENPLACED WITHIN REACH
[2025-05-28] MEDS ORDERED: ALBUMIN HUMAN 25% 100 ML BTL IV ONE (16:15)
--- NOTE | 2025-05-28 17:00 | NUR ---
PATIENT UP IN CHAIR READING. IV ALBUMIN RUNNING. PATIENT STATING AT 98 WILL REMOVE 1L OXYGEN AND MONITOR.
--- NOTE | 2025-05-28 18:00 | NUR ---
HOURLY ROUNDING PATIENT SITTING IN RECLINER VISITING WITH HER INGA. NO REQUEST FROM PATIENT AT THIS TIME CALL LIGHT HAS BEEN PLACED WITHIN REACH
--- NOTE | 2025-05-28 19:09 | NUR ---
VERBAL REPORT RECEIVED BY JARRETT KEANE. PATIENT IS SITTING UP IN RECLINER AT THIS TIME. CPOX AT BEDSIDE SPO2 91% ON ROOM AIR, PATIENT DENIES SOB, BPM 75. PATIENT DENIES ANY NEEDS AT THIS TIME. CALL LIGHT IN REACH.
--- NOTE | 2025-05-28 20:45 | NUR ---
PATIENT IS SITTING UP IN RECLINER AT THIS TIME. CPOX AT BEDSIDE SPO2 91% ON RA, BPM 84, DENIES ANY SOB, BREATHING EVEN AND UNLABORED. PATIENT DENIES ANY NEEDS AT THIS TIME. CALL LIGHT IN REACH.
--- NOTE | 2025-05-28 23:05 | NUR ---
CPOX ALARMING, pt ON RA WITH SPO2 LOW 80'S W/ GOOD WAVEFORM. PRIMARY RN MADE AWARE AND pt PLACED ON 1LNC, SPO2 IMPROVED TO 92-93%. CALL LIGHT IN REACH.
--- NOTE | 2025-05-28 23:40 | NUR ---
PATIENT CALLED TO USE THE BATHROOM SBA TO VOID 300ML YELLOW URINE. PATIENT IS BACK IN BED. NO OTHER NEEDS AT THIS TIME.
[2025-05-29] VITALS (8 sets, daily range): BP systolic 123–145; BP diastolic 46–77
--- NOTE | 2025-05-29 01:00 | NUR ---
PATIENT CALLED WANTING TO GET UP IN THE CHAIR. SBA. CPOX AND O2 ON. SIDE TABLE AND CALL LIGHT WITHIN REACH. WARM BLANKET PROVIDED. NO OTHER NEEDS AT THIS TIME.
--- NOTE | 2025-05-29 01:21 | NUR ---
PATIENT IS SITTING UP IN RECLINER EYES CLOSED BREATHING EVEN AND UNLABORED, LEGS ELEVATED. CPOX AT BEDSIDE SPO2 95% ON 1L NC, BPM 63. CALL LIGHT IN REACH. NO NEEDS AT THIS TIME.
--- NOTE | 2025-05-29 04:19 | NUR ---
PATIENT ASSISTED TO THE BATHROOM SBA, PATIENT TOLERATED WELL, DENIES SOB. PATIENT UP IN RECLINER CPOX AT BEDSIDE SPO2 92% ON 1L NC, BPM 69. PATIENT DENIES FURTHER NEEDS AT THIS TIME. CALL LIGHT IN REACH.
--- NOTE | 2025-05-29 05:36 | NUR ---
PT SITTING UP IN CHAIR. PT STOOD UP ON SCALES. CALL LIGHT WITHIN REACH. PT HAS NO NEEDS AT THIS TIME.
[2025-05-29 05:38] LABS: BASOPHILS 0.4 % (0.1-1.2); EOSINOPHILS 4.6 % (0.7-5.8); LYMPHOCYTES 21.8 % (19.3-51.7); MCH 31.4 PG (25.6-32.2); MCHC 31.6 g/dL (32.2-35.5); MCV 99.2 fL (79.4-94.8); MONOCYTES 7.2 % (4.7-12.5); NEUTROPHILS 65.9 % (34.0-71.1); RBC 3.73 M/uL (3.93-5.22)
[2025-05-29 05:54] LABS: ALT (SGPT) 24.0 U/L (14-59); AST (SGOT) 13.0 U/L (15-37); GLOMERULAR FILTRATION RATE,EST 71.0 mL/min (>60); PROTEIN, TOTAL 6.8 g/dL (6.4-8.2); UREA NITROGEN 26.0 mg/dL (7-18)
--- NOTE | 2025-05-29 06:40 | NUR ---
PATIENT SITTING UP IN RECLINER AT THIS TIME, CPOX AT BEDSIDE SPO2 93% ON 1L NC, BPM 69. COFFEE GIVEN PER PATIENT REQUEST, DENIES ANY FURTHER NEEDS AT THIS TIME. CALL LIGHT IN REACH.
--- NOTE | 2025-05-29 07:25 | EKG ---
[facility] [address] [place] [address] Signed Sinus rhythm with premature supraventricular complexes Nonspecific ST and T wave abnormality Abnormal ECG When compared with ECG of 24-MAY-2025 13:41, No significant change was found Confirmed by Gregory Thompson DO ([id number]) on 05/29/2025 7:25:08 AM Electronically Signed By: GREGORY THOMPSON DO 05/29/25724 PATIENT NAME: BHAVANA LUCIO Electrocardiogram DATE OF : 55 PHYSICIAN: GREGORY THOMPSON DO REPORT #: [id number] REPORT IS CONFIDENTIAL AND NOT TO BE RELEASED WITHOUT AUTHORIZATION
--- NOTE | 2025-05-29 07:50 | NUR ---
REPORT RECEIVED FROM DIYA WADE. pt UP IN CHAIR RECEIVING NEB TREATMENT. CPOX ON, SPO2 WNL ON RA. NO DISTRESS NOTED, NO REQUESTS. CALL LIGHT IN REACH.
[2025-05-29] MEDS ORDERED: BUDESONIDE 0.5 MG/2 ML VIAL INH SCH (08:00)
--- NOTE | 2025-05-29 08:35 | NUR ---
PHONE CALL FROM CT, VERBAL ORDER TO NOT HAVE pt EAT OR DRINK ADDITIONALLY CONTRAST CAN MAKE SOME pt'S NAUSEOUS, pt UPDATED, FOOD TRAY AND PO FLUIDS REMOVED FROM pt. EDUCATION PROVIDED, SPO2 WNL ON RA. CALL LIGHT IN REACH.
--- NOTE | 2025-05-29 08:54 | NUR ---
HOURLY ROUNDING PATIENT BOARD HAS BEEN UPDATED AND AM CARE COMPLTED PATIENT IS NOW FINISHING BREAKFEAST. URINAL HAT HAS BEEN EMPTITED. NO REQUEST FROM PATIENT AT THIS TIME. CALL LIGHT HAS BEEN PLACED WITHIN REACH
--- NOTE | 2025-05-29 09:15 | NUR ---
ALERT AND ORIENTED, IN RECLINER. DENIES CM NEEDS FOR DC TO HOME, WHEN MEDICALLY READY
--- NOTE | 2025-05-29 09:34 | NUR ---
HOURLY ROUNDING PATIENT PUT ON TOM SOCKS, SHE HAS HER PERSONAL TOM'S SO WE JUST PUT THOSE ON. NO FURTHER REQUEST FROM PATIENT CALL LIGHT HAS BEEN PLACED WIHTIN REACH AN URINAL HAT HAS BEEN EMPTIED
--- NOTE | 2025-05-29 10:09 | NUR ---
pt ASSISTED TO WC. ASSESSMENT COMPLETE. LUNG SOUNDS CLEAR. HR REGULAR RHYTHM. TOM HOSE ON, 2+ EDEMA BLE. IV SITE FLUSHED WNL, SL. OFF FLOOR FOR CT SCAN AT THIS TIME.
--- NOTE | 2025-05-29 10:54 | NUR ---
pt BACK TO ROOM AFTER CT. MORNING MEDICATIONS ADMINISTERED. OATMEAL AND COFFEE REHEATED. pt SITTING UP VISITING WITH . NO ADDITIONAL REQUESTS.
--- NOTE | 2025-05-29 11:20 | NUR ---
CALL LIGHT ANSWERED. SBA TO RESTROOM FOR VOID AND BACK TO CHAIR, SPO2 82% UPON RETURN, WITHIN TWO MINUTES WNL, 92% ON RA. DISCUSSED OXYGEN WITH AMBULATION PRIOR TO GETTING UP. CALL LIGHT AND PERSONAL SUPPLIES IN REACH.
--- NOTE | 2025-05-29 12:20 | NUR ---
IN ROOM FOR MEDICATION ADMINISTRATION. SBA TO RESTROOM FOR VOID, 600 MLS DILUTE URINE. 2L OXYGEN BY NC IN PLACE WITH AMBULATION. SPO2 90% AFTER RETURNING TO CHAIR. SITTING UP EATING LUNCH. BOTTLE OF WATER PROVIDED. NO ADDITIONAL REQUESTS.
--- NOTE | 2025-05-29 13:19 | NUR ---
THIS RN ATTEMPTING TO MAKE FOLLOW-UP APPOINTMENT WITH CARDIOLOGY @ [facility] - DR. LEYVA WHOM PATIENT IS ESTABLISHED WITH
--- NOTE | 2025-05-29 13:23 | NUR ---
PER DR. THOMPSON, WOULD LIKE PATIENT SCHEDULED FOR FOLLOW-UP WITH CARDIOLOGY FOR WORSENING AORTIC STENOSIS OF PROSTHETIC VALVE SEEN ON ECHO. APPT SCHEDULED AND INPUT ON DISCHARGE PAPERS FOR 06/10 AT 11:30AM.
--- NOTE | 2025-05-29 13:28 | NUR ---
CALL LIGHT ANSWERED. pt BACK TO CHAIR FROM BED BATH IN RESTROOM. NEW GOWN ON. SPO2 82% INCREASES TO 92% ON RA WITH DEEP BREATHING INSTRUCTED AND REST. NEW CPOX ON. CALL LIGHT AND PERSONAL SUPPLIES IN REACH.
[2025-05-29] MEDS ORDERED: FUROSEMIDE 20 MG TAB ONE (14:45)
--- NOTE | 2025-05-29 14:50 | NUR ---
pt IN ROOM WORKING WITH pt. pt UP IN CHAIR. SPO2 WNL ON RA AT REST. CALL LIGHT IN REACH.
--- NOTE | 2025-05-29 15:06 | NUR ---
pt SITTING UP IN CHAIR, ASSESSMENT COMPLETE. LUNG SOUNDS CLEAR THROUGHOUT ALL LOBES. SPO2 WNL ON RA WHILE AT REST. pt ABLE TO AMBULATE SEVERAL LAPS IN HALLWAY WITH PHYSICAL THERAPY WITH 1L OXYGEN, SBA.
--- NOTE | 2025-05-29 17:45 | NUR ---
IN ROOM TO ROUND ON pt. pt UP IN CHAIR EATING DINNER. SPO2 WNL ON RA. NO REQUESTS AT THIS TIME.
--- NOTE | 2025-05-29 18:08 | NUR ---
CALL LIGHT ANSWERED. pt NOTIFIED THIS RN THAT HEART IS "DOING THAT THING AGAIN". HR 162. AUSCULTATED, REGULAR RHYTHM. VS COMPLETE. PHONE CALL TO MD, UPDATED. MD PLACES NEW ORDER. pt UP IN CHAIR. CALL LIGHT NEXT TO pt. UPDATED ON PLAN OF CARE.
[2025-05-29] MEDS ORDERED: METOPROLOL TARTRATE 25 MG TAB PO SCH (18:15)
--- NOTE | 2025-05-29 18:30 | NUR ---
THIS RN IN TO GIVE ORAL MEDS FOR HER. HR IN THE 93-99 RANGE AT THIS TIME, PT STATES ITS NOT RAISING FAST BUT STILL CAN FEEL IT BEATING FAST. VS RECHECKED. WILL RETURN TO FOLLOW-UP ON VS SHORTLY. CALL LIGHT WITHIN REACH.
--- NOTE | 2025-05-29 19:10 | NUR ---
REPORT RECEIVED FROM NATALY KEANE. pt RESTING IN THE CHAIR. BOARD UPDATED. pt DENIES ANY NEEDS AT THIS TIME. CALL LIGHT WITHIN REACH.
[2025-05-29 19:27] LABS: TSH, 3RD GENERATION 1.548 uIU/mL (0.358-3.740)
--- NOTE | 2025-05-29 20:10 | NUR ---
PUBLIC AREA SUPERVISOR AND DIYA YANCEY OBTAINED VITALS AND I&O. PT STATES NO NEEDS AT THIS TIME. CALL LIGHT WITHIN REACH AND PT REMAINS IN CHAIR.
--- NOTE | 2025-05-29 20:30 | NUR ---
ASSESSMENT AND VITAL SIGNS DONE. pt SITTING IN HER CHAIR. TOM HOSE ON. CPOX ON. pt ON 2LNC SATTING AT 91%. pt BG CHECKED WITH A RESULTS OF 169. SS INSULIN ADMINISTERED. SCHEDULED MEDS ADMINISTERED. NO EDEMA NOTED AT THIS TIME. CALL LIGHT WITHIN REACH. pt DENIES ANY OTHER NEEDS AT THIS TIME.
--- NOTE | 2025-05-29 22:09 | NUR ---
CALL LIGHT ANSWERED. PT NEEDED TO USE BATHROOM. BUSINESS DIRECTOR SBA TO BATHROOM. PT VOIDED AND ASSISTED TO BED. PT STATES NO FURTHER NEEDS AT THIS TIME. CALL LIGHT WITHIN REACH.
--- NOTE | 2025-05-29 22:46 | NUR ---
pt RESTING IN THE BED WITH EYES CLOSED. RR EVEN AND UNLABORED. CALL LIGHT WITHIN REACH.
[2025-05-30] VITALS (9 sets, daily range): BP systolic 100–128; BP diastolic 41–52
--- NOTE | 2025-05-30 01:24 | NUR ---
pt MOVED FROM THE BED TO THE CHAIR AT 0030 AND IS NOW RESTING WITH EYES CLOSED. RR EVEN AND UNLABORED. CALL LIGHT WITHIN REACH. pt DID GET UP TO THE BR AT THAT TIME.
--- NOTE | 2025-05-30 03:19 | NUR ---
pt RESTING IN THE CHAIR WITH EYES CLOSED. RR EVEN AND UNLABORED. CALL LIGHT WITHIN REACH.
--- NOTE | 2025-05-30 04:45 | NUR ---
CALL LIGHT ANSWERED. PT NEEDED TO USE BATHROOM. LADDER OPERATOR SBA TO ABTHROOM. PT VOIDED AND ASSISTED BACK TO CHAIR. VITALS AND I&O OBTAINED. PT STATES NO FURTHER NEEDS AT THIS TIME. CALL LIGHT WITHIN REACH.
[2025-05-30 05:40] LABS: BASOPHILS 0.6 % (0.1-1.2); EOSINOPHILS 4.6 % (0.7-5.8); LYMPHOCYTES 22.8 % (19.3-51.7); MCH 31.2 PG (25.6-32.2); MCHC 31.2 g/dL (32.2-35.5); MCV 100.0 fL (79.4-94.8); MONOCYTES 8.0 % (4.7-12.5); NEUTROPHILS 63.9 % (34.0-71.1); RBC 3.69 M/uL (3.93-5.22)
[2025-05-30 06:01] LABS: ALT (SGPT) 27.0 U/L (14-59); AST (SGOT) 19.0 U/L (15-37); GLOMERULAR FILTRATION RATE,EST 67.0 mL/min (>60); PROTEIN, TOTAL 6.5 g/dL (6.4-8.2); UREA NITROGEN 27.0 mg/dL (7-18)
--- NOTE | 2025-05-30 06:12 | NUR ---
DAILY WEIGHT DONE. pt SITTING IN THE CHAIR. VITAL SIGNS DONE. pt DENIES ANY NEEDS AT THIS TIME. CALL LIGHT WITHIN REACH. pt ON 1LNC.
--- NOTE | 2025-05-30 07:32 | NUR ---
PT SITTING UP IN CHAIR, CALL LIGHT WITHIN REACH. REPORT RECEIVED FROM NAYE KEANE
[2025-05-30] MEDS ORDERED: acetaZOLAMIDE 250 MG TAB PO ONE (08:15)
--- NOTE | 2025-05-30 08:49 | NUR ---
0745, HELPED RT JADEN WITH WHEELCHAIR FOLLOW AROUND FLOOR.
[2025-05-30] MEDS ORDERED: FUROSEMIDE 40 MG TAB PO SCH (09:00)
[2025-05-30] MEDS ORDERED: FUROSEMIDE 20 MG TAB PO SCH (09:00)
--- NOTE | 2025-05-30 09:08 | NUR ---
THIS RN ENTERED PT'S ROOM D/T PT CALLING AND STATTING HER HEART FEELS LIKE "IT'S RACING". PT'S HR ON CPOX IS 130S-140S. PT DENIES CHEST PAIN, SOB, LIGHTHEADEDNESS OR DIZZINESS. THIS RN GAVE PT HER MORNING METOPROLOL DOSE.
--- NOTE | 2025-05-30 09:10 | NUR ---
PT'S HR NOW DOWN AND REMAINING IN THE 80S. PT STATES THE "RACING" FEELING IS GONE. INSTRUCTED PT TO PLEASE INFORM STAFF IF SHE EXPERIENCES THIS AGAIN. CALL LIGHT WITHIN REACH.
--- NOTE | 2025-05-30 09:18 | NUR ---
INTO SEE PATIENT. PATIENT CHOICE LETTER GIVEN. PATIENT WOULD LIKE TO USE [facility] FOR OXYGEN. IMM REVIEWED. PATIENT TO GO HOME WITH AT TIME OF DISCHARGE.
--- NOTE | 2025-05-30 09:38 | NUR ---
PATIENT IN CHAIR AT THIS TIME. THIS DIETARY AIDE COOK ASSISTED PATIENT TO BATHROOM AND THEN BACK TO CHAIR. CALL LIGHT WITHIN REACH, NO FURTHER NEEDS AT THIS TIME.
--- NOTE | 2025-05-30 10:05 | NUR ---
DR THOMPSON NOTIFIED OF PT'S INCIDENT WITH HR.
--- NOTE | 2025-05-30 10:09 | NUR ---
Pt request more information on CHF. Pt sitting in chair. Education completed. Pt ask all questions she had. Verbalized understanding of education. No further questions at this time. Pt aware I will return to room if she has any more questions.
--- NOTE | 2025-05-30 11:12 | NUR ---
CHART FAXED TO [facility].
--- NOTE | 2025-05-30 12:30 | NUR ---
PT AMBULATED TO RR WITH O2 INCREASED TO 3L PER NC, TOLERATED WELL. PT'S O2 DECREASED TO 1L PER NC WHEN PT BACK TO CHAIR. CPOX INTACT AND O2 SAT 91%. PT DENIES SOB. NO REQUESTS AT THIS TIME, CALL LIGHT WITHIN REACH.
[2025-05-30] MEDS ORDERED: PROPRANOLOL HCL 20 MG TAB PO PRN (13:15)
--- NOTE | 2025-05-30 15:00 | NUR ---
PT CALLED THIS RN INTO HER ROOM BECAUSE HER HR IS DROPPING LOW 38 MOMENTARILY (LESS THAN 1 MINUTE SUSTAINED). PT DENIES OTHER SYMPTOMS. DR NOBLE NOTIFIED AND ORDERS RECEIVED. CALL LIGHT WITHIN REACH. PT INSTRUCTED TO INFORM NURSE IF IT HAPPENS AGAIN.
[2025-05-30] MEDS ORDERED: NITROGLYCERIN 0.4 MG SUBL SL PRN (15:15)
--- NOTE | 2025-05-30 16:32 | NUR ---
DR GUTIERREZ IN TO EVALUATE PT AND DISCUSS POC WITH PT AND .
--- NOTE | 2025-05-30 18:45 | NUR ---
PT UP TO RESTROOM, TOLERATED WELL. PT HAS FAMILY IN ROOM. CALL LIGHT WITHIN REACH
--- NOTE | 2025-05-30 19:10 | NUR ---
REPORT RECEIVED FROM JAMIE KEANE. pt SITTING IN CHAIR. pt ON 1L NC. BOARD UPDATED. pt DENIES ANY OTHER NEEDS AT THIS TIME. CALL LIGHT WITHIN REACH.
--- NOTE | 2025-05-30 19:48 | NUR ---
dr butler at rn station, per md-no need to repeat trops at this time. reback to confirm.
[2025-05-30] MEDS ORDERED: MICONAZOLE NITRATE 1 EA BTL TOP SCH (21:00)
--- NOTE | 2025-05-30 21:26 | NUR ---
REPORT CALLED TO [facility]. pt PICKED UP BY [facility]. pt PACKED UP. pt NOT IN ANY ASSIST. pt DENIES ANY NEEDS AT THIS TIME.
== END 2025-05-30 21:17 | disposition short-term general hospital (02) | DRG 280 ==
LOC: ED 13:31 → MS 16:49
PROVIDERS: Emergency Medicine; Student in an Organized Health Care Education/Training Program; ADMIT Family Medicine; ATTEND Internal Medicine
DX: I11.0 Hypertensive heart disease with heart failure (principal); I50.33 Acute on chronic diastolic (congestive) heart failure; I21.A1 Myocardial infarction type 2; J96.01 Acute respiratory failure with hypoxia; T82.857A Stenosis of other cardiac prosthetic devices, implants and grafts, initial encounter; I49.3 Ventricular premature depolarization; G47.33 Obstructive sleep apnea (adult) (pediatric); Y71.2 Prosthetic and other implants, materials and accessory cardiovascular devices associated with adverse incidents; E11.9 Type 2 diabetes mellitus without complications; Z66 Do not resuscitate; I44.0 Atrioventricular block, first degree; Z88.8 Allergy status to other drugs, medicaments and biological substances; Z79.01 Long term (current) use of anticoagulants; Z79.2 Long term (current) use of antibiotics; Z79.84 Long term (current) use of oral hypoglycemic drugs; Z87.891 Personal history of nicotine dependence
CPT/HCPCS: 36415; 71045; 71260; 80053; 82803; 83036; 83735; 83880; 84100; 84439; 84443; 84484; 85025; 93005; 93010; 93306; 94640; 94667; 94668; 94761; 94762; 94799; 97110; 97161; 97165; 97530; 97535; A9270; J1650; J1815; J1938; J7605; P9047; Q9967